=== PATIENT | male | born 1940 | race Caucasian/White ===

== ENCOUNTER 2022-01-01 12:45 | Inpatient (IN) | payer MEDICARE, OTHER, SELFPAY ==
[2022-01-01 13:38] VITALS: BP 145/62; PULSE 53; RESP 16; TEMP 36.7; O2SAT 94; BMI 31.7
[2022-01-01] MEDS: Acetaminophen 500 MG Tablet 1000 MG PO ×2 (15:16→21:47)
[2022-01-01] MEDS: Aspirin 325 MG Tablet PO (17:17)
[2022-01-01 18:50] VITALS: O2SAT 95
[2022-01-01 19:28] VITALS: BP 139/49; PULSE 56; RESP 17; TEMP 37; O2SAT 94
[2022-01-01 21:44] VITALS: BP 123/63; PULSE 48
[2022-01-01] MEDS: Atorvastatin Calcium 20 MG Tablet PO (21:48)
[2022-01-01] MEDS: Furosemide 20 MG Tablet PO (21:48)
[2022-01-01 22:00] VITALS: PULSE 48
[2022-01-01 22:03] VITALS: BP 123/63; PULSE 48
[2022-01-01] MEDS: hydrALAZINE 10 MG Tablet PO (22:03)
[2022-01-01] MEDS: Gabapentin 600 MG Tablet PO (22:03)
[2022-01-01] MEDS: Menthol/Lanolin/Calamine/Znox 113 GM Tube 1 APPLIC TOPICAL (22:03)
[2022-01-02] VITALS (9 sets, daily range): BP systolic 131–152; BP diastolic 51–63; PULSE 51–62; RESP 16–18; TEMP 36.4–36.7; O2SAT 95–96
[2022-01-02 05:47] LABS: Hematocrit 36.3 % (40-54); Hemoglobin 12.6 g/dL (13.0-16.5); Mean Corp Hgb Conc 34.7 g/dL (32-36); Mean Corpuscular Hgb 34.8 pg (27.0-32.0); Mean Corpuscular Volume 100.3 fL (80-94); Mean Platelet Vol. 9.5 fl (6.2-12.0); Platelet Count 159 K/mm3 (150-450); RBC Distribution Width CV 13.6 % (11.6-14.6); RBC Distribution Width SD 50.4 fl (35.1-43.9); Red Blood Count 3.62 M/mm3 (4.6-6.2); White Blood Count 6.7 K/mm3 (4.4-11.0)
[2022-01-02 06:13] LABS: ALB/GLOB Ratio 0.9 RATIO (0.9-2.4); AST(SGOT) 33 U/L (15-37); Alanine Aminotransfer ALT/SGPT 27 U/L (16-61); Alkaline Phosphatase 32 U/L (45-117); Anion Gap 4 (5-15); BUN 32 mg/dL (7-18); BUN/Creat Ratio 24.8 RATIO (10-20); Calcium,Total 9.4 mg/dL (8.5-10.1); Chloride 107 mmol/L (98-107); Creatinine, Serum 1.29 mg/dL (0.70-1.30); EST Glomerular Filtration Rate 57 mL/min (>60); Est Glom Filt Rate - Afr Amer 68 mL/min (>60); Estimated Creatinine Clearance 42.71 ml/min; Globulin 3.2 g/dL (2.2-4.2); Glucose 143 mg/dL (74-106); Magnesium 2.3 mg/dL (1.6-2.6); Phosphorus 2.8 mg/dL (2.5-4.9); Potassium 3.8 mmol/L (3.5-5.1); Protein, Total 6.2 g/dL (6.4-8.2); Sodium Level 143 mmol/L (136-145)
[2022-01-02] MEDS: Acetaminophen 500 MG Tablet 1000 MG PO ×3 (06:29→21:14)
[2022-01-02] MEDS: Gabapentin 600 MG Tablet PO ×2 (06:30→13:25)
[2022-01-02] MEDS: hydrALAZINE 10 MG Tablet PO ×3 (06:30→19:39)
[2022-01-02] MEDS: Potassium Chloride Oral Tablet 10 MEQ PO (07:37)
[2022-01-02] MEDS: Allopurinol 300 MG Tablet PO (07:38)
[2022-01-02] MEDS: Aspirin 325 MG Tablet PO (07:38)
[2022-01-02] MEDS: Pantoprazole Sodium 40 MG Tablet PO (07:38)
[2022-01-02] MEDS: Senna/Docusate Sodium 1 Tablet 2 TABLET PO (07:38)
[2022-01-02] MEDS: Fenofibrate 145 MG Tablet PO (07:38)
[2022-01-02] MEDS: Metoprolol(XL)Succ 100 MG Tablet PO (07:40)
[2022-01-02] MEDS: Colchicine 0.6 MG TABLET PO (07:41)
--- NOTE | 2022-01-02 09:57 | HP.PCM_ITS ---
[facility] - General General Date of Admission: 01/01/22 Date of Service: 01/02/22 Chief Complaint: Debility due to Left total hip replacement. HPI Narrative ELDA BROOKS, is a 81 YO M with a PMH of HTN, HLD, CAD, CI with 1 stent in the past, hx of AV replacement, Prostate cancer, urostomy with an ileal conduits, OA, neuropathy in his feet, gout, obstructive sleep apnea (compliant with CPAP) and CHF who had a L hip THR on 12/28/[address] at [facility]. His tells me that he was very awake in the immediate post-op period and back to himself but, after the pain medication started he had problems with getting angry and confused. He was seen by PT/OT post op and was too unsteady and requiring a lot of voice cuing to manage the walker to be discharged home. Because of his history of aortic valve replacement, congestive heart failure, severe neuropathy in his feet acute rehab was recommended. He was transferred to the acute inpt rehab unit at [facility] on 12/31/21 for 3 hours of therapy daily to restore function at or near his level prior to the surgery. I spoke with his Voileta on the phone and she told me that Madi had been walking with a platform walker at home. He is very afraid of falling due to g ait instability and the numbness in his feet. He has had epidurals in his back over the past year and the first helped for about one month and the follow up epidurals did not help with pain. He has been on Celebrex in the past and this has helped with pain management but, Celebrex was discontinued for the surgery and now orthopedics has him on 325 mg of ASA BID for DVT prophylaxis. He denies hx of PUD/GI bleeds and has no epigastric pain or nausea at the current time. Violeta tells me that Madi is chronically in terrible pain and that he has been depressed but, won't take and antidepressant because he is tired of taking pills. Madi got tearful when I was talking to him about his PCP whom he likes very much. When I listed the sx of depression he had a tear in his eye and said you just described me. He is hesitant to start an antidepressant at the present time but, will think about it and is willing to discuss it with Violeta and myself. He had a hard night last night and called Violeta to come get him and bring him home. He tells me that he slept well last night. PCP is Dr. Sonido Suarez. Ortho is Dr. Sunny Carbone - 05/05/22 at 0800 Post op F/U with Brianda GermainCECILIO - 01/27/22 at 0830. ECHO done 06/28/21: EF is 55%, Normal stress on 10/24/21 [facility] Medical History (Updated 01/02/22 @ 14:[address] April Maloney, DO) Congestive heart failure (CHF) Coronary artery disease Gout Grade I diastolic dysfunction Hyperlipidemia Hypertension LVH (left ventricular hypertrophy) Obstructive sleep apnea Osteoarthritis Prostate cancer Home Medications acetaminophen 500 mg tablet (Acetaminophen Extra Strength) 1,000 mg PO Q8H pain 01/01/22 [History Last Taken Unknown] allopurinol 300 mg tablet 300 mg PO DAILY gout 01/01/22 [History Last Taken Unknown] aspirin 325 mg tablet 325 mg PO BID dvt 01/01/22 [History Last Taken Unknown] colchicine 0.6 mg tablet 0.6 mg PO DAILY gout 01/01/22 [History Last Taken Unknown] fenofibrate 160 mg tablet 160 mg PO DAILY cholesterol 01/01/22 [History Last Taken Unknown] furosemide 20 mg tablet (Lasix) 20 mg PO QHS diuretic 01/01/22 [History Last Taken Unknown] gabapentin 600 mg tablet 600 mg PO TID pain 01/01/22 [History Last Taken Unknown] hydralazine 10 mg tablet 10 mg PO TID bp 01/01/22 [History Last Taken Unknown] metoprolol succinate 100 mg tablet,extended release 24 hr 100 mg PO DAILY bp 01/01/22 [History Last Taken Unknown] nitroglycerin 0.4 mg sublingual tablet 0.4 mg sublingual Q5M PRN Chest Pain 01/01/22 [History Last Taken Unknown] pantoprazole 40 mg tablet,delayed release (Protonix) 40 mg PO DAILY acid reflux 01/01/22 [History Last Taken Unknown] potassium chloride 10 mEq tablet,extended release 10 meq PO DAILY supp 01/01/22 [History Last Taken Unknown] simvastatin 40 mg tablet (Zocor) 40 mg PO QHS cholesterol 01/01/22 [History Last Taken Unknown] Allergy/AdvReac Type Severity Reaction Status Date / Time acetaminophen [From Vicodin] AdvReac PT UNSURE Verified 01/01/22 13:45 OF REACTION fentanyl AdvReac PT UNSURE Verified 01/01/22 13:45 OF REACTION hydrocodone [From Vicodin] AdvReac PT UNSURE Verified 01/01/22 13:45 OF REACTION morphine AdvReac PT UNSURE Verified 01/01/22 13:45 OF REACTION Family History Mother Hypertension CAD (coronary artery disease) Father CAD (coronary artery disease) Hypertension Family History unable to obtain Surgical History (Updated 01/02/22 @ 13:[address] April Maloney DO) Aortic valve replaced H/O total cystectomy History of cataract extraction History of cholecystectomy History of coronary artery stent placement History of left hip replacement History of right hip replacement History of total knee arthroplasty History of urostomy Social History Smoking Status: Former smoker how long ago did patient quit smoking: ?He quit smoking in 1979 ROS Review of Systems ROS Unobtainable: Denies due to encephalopathy, due to endotracheal tube, due to mental condition or due to mental status Constitutional Constitutional: Reports daytime sleepiness, fatigue and weakness; Denies anorexia, change in weight, chills, fever(s) or night sweats Eyes Eyes: Denies blurry vision, change in vision, eye pain, loss of vision or ptosis ENT HEENT: Reports abnormal hearing and disequillibrium; Denies dizziness, dysphagia, headache(s), hearing loss, nasal congestion or sore throat Cardiovascular Cardiovascular: Reports dyspnea on exertion, edema and other Details: Gets very dyspneic with stair climbing ; Denies chest pain, lightheadedness, orthopnea, palpitations, paroxysmal nocturnal dyspnea or syncope Respiratory/Chest Respiratory/Chest: Reports cough and shortness of breath with exertion; Denies dyspnea, shortness of breath at rest or wheezing Gastrointestinal Gastrointestinal: Denies abdominal pain, constipation, diarrhea, dyspepsia, hematemesis, hematochezia, nausea or vomiting Genitourinary Genitourinary: Reports other Details: Has a urostomy with an ileal conduit and wears a landis bag. ; Denies dysuria, hematuria, nocturia, urinary frequency, urinary hesitancy, urinary incontinence or urinary urgency Musculoskeletal Musculoskeletal: Reports difficulty walking, joint pain, joint stiffness, muscle weakness and stiffness; Denies back pain, joint swelling, neck pain or tremors Integumentary Integumentary: Reports other Details: He has a wound vac on - will examine when the vac is changed. Neurologic Neurologic: Reports confusion, disequilibrium, paresthesias, weakness and other Details: denies any hx of CVA. He has neuropathy in both feet and has been on Neurontin for 6-7 years. ; Denies dizziness, focal weakness, headache(s), seizures or tremor(s) Psychiatric Psychiatric: Reports abnormal sleep pattern, behavioral changes, depression, mood swings and other Details: From the hx it sounds as though he sundowns at night while in the hospital.....may be medication induced. ; Denies anxiety, auditory hallucinations, homicidal ideation, suicidal ideation or visual hallucinations Endocrine Endocrinology: Denies change in body appearance, polydipsia or polyuria Hematologic/Lymphatic Hematologic/Lymphatic: Denies easy bleeding, easy bruising or lymphadenopathy Allergic/Immunologic Allergic/Immunologic: Denies rhinitis, eczemia or asthma Vital Signs Vital Signs Vital Signs: 01/01/22 13:38 01/01/22 18:14 01/01/22 19:28 Temperature 98.1 F 98.6 F Temperature Source Oral Temporal Pulse Rate 53 L 56 L Respiratory Rate 16 17 Respiratory Effort Normal Non-Labored Respiratory Depth Normal Respiratory Pattern Normal Blood Pressure 145/62 H 139/49 H Blood Pressure Mean 89 79 Blood Pressure Source Monitor Monitor Blood Pressure Position Semi-Fowlers Semi-Fowlers Blood Pressure Location Right Arm Left Arm Pulse Ox 94 94 Oxygen Delivery Method Room Air Room Air Room Air 01/01/22 21:44 01/01/22 22:03 01/01/22 22:00 Temperature Temperature Source Pulse Rate 48 L 48 L 48 L Respiratory Rate Respiratory Effort Respiratory Depth Respiratory Pattern Blood Pressure 123/63 H 123/63 H Blood Pressure Mean 83 Blood Pressure Source Monitor Blood Pressure Position Semi-Fowlers Blood Pressure Location Left Arm Pulse Ox Oxygen Delivery Method 01/01/22 18:50 01/02/22 06:21 01/02/22 06:30 Temperature Temperature Source Pulse Rate 51 L 51 L Respiratory Rate Respiratory Effort Respiratory Depth Respiratory Pattern Blood Pressure 152/63 H 152/63 H Blood Pressure Mean 92 Blood Pressure Source Monitor Blood Pressure Position Semi-Fowlers Blood Pressure Location Left Arm Pulse Ox 95 Oxygen Delivery Method Room Air 01/02/22 07:10 01/02/22 07:40 01/02/22 08:09 Temperature 97.6 F L Temperature Source Oral Pulse Rate 60 60 Respiratory Rate 16 Respiratory Effort Respiratory Depth Respiratory Pattern Blood Pressure 131/51 H Blood Pressure Mean 77 Blood Pressure Source Monitor Blood Pressure Position Sitting Blood Pressure Location Left Arm Pulse Ox 95 96 Oxygen Delivery Method Room Air Room Air Weight Weight: 216 lb 11.43 oz Body Mass Index (BMI) 31.7 Physical Exam Const alert, oriented x3 and no apparent distress Constitutional Narrative: Very flat affect. Lying in bed and sleeping when I entered the room. General Appearance: cooperative and ill appearing HEENT normocephalic and head/scalp atraumatic HEENT Narrative: Dry MM. Has BL Hearing aids. Very little facial expression except for tears a few times. Eyes PERRL, EOMs intact bilaterally, conjunctivae normal, no scleral icterus and normal visual aguiar by confrontation Eyes Narrative: No DC from the eyes and no mattering of the eye lashes. General Eye: normal appearance of both eyes and other Other Details: Not wearing glasses Neck no lymphadenopathy, supple and no carotid bruits General: trachea midline Chest inspection of chest normal Resp normal respiratory effort, normal air movement and no use of accessory muscles Resp Narrative: Coarse crackles in the bases that resolve with several deep breaths. No orthopnea or labored breathing when I observed him lying flat and sleeping. Not snoring. Effort and Inspection: able to speak in complete sentences Cardio regular rate, regular rhythm, no rub and no gallops Cardio Narrative: He has a 1/6 JACK at the second R ICS with no radiation. Jugular Venous Distention: Negative for JVD GI GI Narrative: Soft, ND, decreased BS's, mild tympany, no guarding with palpation. No abd bruits. No masses. Urostomy present - connected to a Landis bag. The urine in the Landis bag is dark and somewhat cloudy. No obvious hematuria. Narrative: did not have an orchiectomy with the removal of the prostate. He had radiation and no chemo. 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 He is not wearing BRENT hose. He tells me his feet swell at home also. The DP pulses are 1-2/3 and the posterior tibial pulses are 3/3 BL. The R foot is somewhat cool to the touch when compared to the left. Skin Skin Narrative: No rashes. He has a wound vac on but, it is not draining. Will remove the dressing and examine when he is back in bed. Wound Narrative: He has male pattern baldness. Neuro oriented x3 Neuro Narrative: He has an abnormal gait with very small steps. The R foot is rotated externally when ambulating. He is also weaker on the R side than the left. He keeps pushing the R foot forward when he is attempting to stand from the chair. He also is not using the RUE to push off when trying to stand from the chair. No dysarthria and no aphasia detected. No facial droop. He has severe numbness in both feet. Denies pain in the R leg or burning in the R foot. I did not observe any tremors. Speech: speech normal Psych thought process normal, cooperative, denies hallucinations, denies homicidal ideation and denies suicidal ideation Psych Narrative: Tearful at 2 times during my interview. Once when we were speaking about his PCP and and the other when I was reviewing the sx of depression with him Appearance: grossly normal and appropriate Attitude: calm Activity / Motor Behavior: other Good eye contact at times and at others he is looking away from me.......more so when he had tears in his eyes. Mood & Affect: depressed, tearful, flat affect, blunted affect and other Was argumentative with the nurses last night and called his to come and take him home. Thought Process: other Having trouble remembering instructions on how to appropriate use the walker and to stay within the walker when he is ambulating........he is pushing the walker way out in front of him and then is flexed at the waist trying to reach it. Memory / Cognition: other Mostly paying attention but, occasionally looking off into space with a far off look in his eyes. Insight: poor Judgement: limited Results Lab / Micro Data Result Diagrams: 01/02/22 05:24 01/02/22 05:24 Labs: Laboratory Results - last 24 hr 01/02/22 05:24: WBC 6.7, RBC 3.62 L, Hgb 12.6 L, Hct 36.3 L, MCV 100.3 H, MCH 34.8 H, MCHC 34.7, RDW Std Deviation 50.4 H, RDW Coeff of Eri 13.6, Plt Count 159, MPV 9.5 01/02/22 05:24: Sodium 143, Potassium 3.8, Chloride 107, Carbon Dioxide 32.0, A nion Gap 4 L, BUN 32 H, Creatinine 1.29, Estim Creat Clear Calc 42.71, Est GFR (MDRD) Af Amer 68, Est GFR (MDRD) Non-Af 57 L, BUN/Creatinine Ratio 24.8 H, Glucose 143 H, Calcium 9.4, Phosphorus 2.8, Magnesium 2.3, Total Bilirubin 0.90, AST 33, ALT 27, Alkaline Phosphatase 32 L, Total Protein 6.2 L, Albumin 3.0 L, Globulin 3.2, Albumin/Globulin Ratio 0.9 Assessment & Plan Assessment/Plan (1) Physical debility: PLAN: Basically sedentary for the past year due to severe pain L hip and groin. Very deconditioned. Ambulates with a platform walker at home when he does ambulate. Has severe peripheral neuropathy and dysequilibrium. (2) History of left hip replacement: PLAN: At [facility] on 12/28/[address] Carbone. L JAX. Has had a R THR and BL TKR in the past. (3) owning: PLAN: I suspect this may be due to combined effects of medication and frustration about not being able to go home after the surgery. (4) Depression: PLAN: Pt admits to having sx of depression and his agrees. She has tried to get him to try another antidepressant and he has resisted because he is tired of taking pills and when he tried an antidepressant in the past it made him very sleepy. (5) Memory deficit: PLAN: Due to Gabapentin? Is the Gabapentin making him more depressed? He is bradycardic and anemic - could he have thyroid disease? He is macrocytic........could he have a B12 deficiency.......could this be contributing to the peripheral neuropathy. (6) Macrocytic anemia: PLAN: Etiology? Reticulocytosis due to acute blood loss with surgery? (7) Osteopenia determined by x-ray: PLAN: To his knowledge he has not had a bone density test. Would recommend in the future. He did not have an orchiectomy with the prostate CA treatment. He had radiation and surgery only. To his knowledge he did not take medication to decrease Testosterone. (8) Venous insufficiency of both lower extremities: PLAN: Order BRENT hose. (9) Presbycusis of both ears: (10) Aortic valve replaced: (11) Grade I diastolic dysfunction: (12) LVH (left ventricular hypertrophy): (13) Congestive heart failure (CHF): (14) Obstructive sleep apnea: PLAN: Compliant with CPAP. (15) Hypertension: (16) Hyperlipidemia: (17) Gout: PLAN: Check a uric acid level to make sure the UA is less than 6. Could the allopurinol be contributing to the anemia? (18) Coronary artery disease: (19) Paroxysmal atrial fibrillation: PLAN: Currently in NSR. (20) Myelopathy: PLAN: Suspected. R leg is weaker than the left which he just had surgery on. He also seems to be weak in the RUE. Etiology? Due to spinal cord compression? (21) Peripheral neuropathy: (22) Glucose intolerance (impaired glucose tolerance): PLAN: Check a hemoglobin A1c. PLAN: Plan PLAN PT for gait stability OT for ADL's ST for evaluation for swallowing and memory Analgesics as needed - avoid narcotics Bowel protocol Fall precautions Assess for Anxiety/Depression GI prophylaxis with pantoprazole DVT prophylaxis with Eliquis 2.5 mg BID Follow up with Dr. Carbone and Dr. Suarez following DC from Rehab AM lab including CMP, CBC, Mag and Phos all personally reviewed. Will also order TSH, B12, Folate, Uric acid, UA, Testosterone. Decrease the Gabapentin to 400 mg TID. Seroquel 25 mg at 1900 daily for . Encouraged increased fluid intake. BRENT hose to control edema in the LE's due to venous insufficiency. Obtain copies of any imaging done of the low back in the past. I reviewed the ECHO report Any EMG's in the past? Unit Exclusion This patient is an acute care inpatient being housed in the excluded unit because of capacity issues related to the disaster or emergency.: Yes
[2022-01-02 11:07] LABS: Thyroid Stim Hormone (TSH) 3.75 uIU/mL (0.358-3.74)
[2022-01-02 13:29] LABS: Vitamin D,25 Hydroxy 32.9 ng/mL
[2022-01-02 13:31] LABS: Vitamin B12 187 pg/mL (211-911)
[2022-01-02 13:55] LABS: Uric Acid 5.2 mg/dL (3.5-7.2)
--- NOTE | 2022-01-02 14:22 | REHABEVAL_ITS ---
Admission Information Primary Diagnosis:: Physical debility due to L THR and deconditioning and B12 deficiency with severe peripheral neuropathy and gait instability. Status Changes from Prescreening?: No changes Identified Actual Problem List:: Skin Intergrity, Pain, ALteration in Cmfrt, Cognitve Imp r/Memory Loss, Depression, Alteration in Sleep, Mobility Impaired, Self Care Deficit, Alteration/ Air Exchange (atelectasis), Fluid Change-Dehydration and Alteration-Leisure Activ. Potential Problem List:: DVT, Bleeding, Infection, UTI, Aspiration, Falls, Skin Integrity and Depression Risk of Complications DVT: LMWH and BRENT Hose Bleeding: Monitor Lab Values, Nursing to Teach Precautions for anti-coagulation therapy., Wound, if applicable, to be assessed every shift. and Stroke patients assessed for lethargy or change in status. Infection: Clinical Staff to Monitor for S/S of infection: and S/S of infection include fever, redness, warmth, etc. Urinary Tract Infection: Monitor for frequency, burning, discomfort, or incontinence. and Nursing will obtain urine sample for urinalysis and C&S when ordered. Aspiration: Clinical staff will monitor for coughing, drooling, congestion., Speech will evaluate swallowing and dsyphasia. and Nursing will monitor patient swallowing during meals. Falls: Patient will be evaluated for Fall Precautions and Patient will be placed on Fall Precautions as indicated per protocol. Skin Breakdown: Nursing will assess skin daily using assessment tool. and Nursing will place on Skin Breakdown Precautions as indicated. Pain: Clinical staff will assess patient's pain level per protocol., Medications will be given, if needed, and the pain level reassessed. and Other methods: Massage, distraction, decrease stimulus, etc. used PRN. Plan of Care Patient requires physician specializing in physical medicine and rehab oversight to provide close medical supervision of rehab issues including: Pain Management, Sleep Problems, Bowel and Bladder, Medical and co-morbidity Management, DVT prophylaxis, Rehabilitation Leadership and Coordination of treatment team Patient needs Physical Therapy: For a minimum of 1 hour and At least 5 out of 7 days Patient needs Physical Therapy to improve:: Mobility, Strengthening, Transfers, Stretching, ROM, Endurance, Stairs, Gait and Balance Patient needs Occupational Therapy: For a minimum of 1 hour and At least 5 out of 7 days Patient needs Occupational Therapy to improve ADL's incl.: Eating, Grooming, Bathing, Dressing, Toileting, Toilet transfers, Community Reintegration, Higher functioning activities, Household tasks, Adaptive Equipment, Splinting and Other activities as determined Patient requires speech therapy: For a minimum of 1 hour and At least 5 out of 7 days Patient requires speech therapy for: Swallowing, Cognition, Language Skills and Compensatory Strategies Patient requires 24/ Rehabilitation Nursing for: Pain Issues, Identifying and preventing risk factors, Monitoring and reporting current medical conditions, Assisting with ambulation, transfer, and all ADL's, Teaching patients about disease process and medications, Family teaching, Providing safe environment, Bowel and Bladder Issues, Skin integrity and Medication Management Patient needs Brake Lining Finisher/ Case Management for: Discharge Planning, Arranging Home Equipment or Services and Family Interventions Patient needs Dietary and Nutrition Services for: Adequate Nutrition, Nutritional Supplements and Nutritional Education Goals Patient will remain: free from falls and or injury at time of discharge. Patient will perform bed mobility at: MOD I level of assist. Patient will complete transfers from bed to chair at: MOD I level of assist. Patient will ambulate: 100 feet (At SBA) and with LRD Patient will complete upper body dressing at: MOD I level of assist. Patient will complete lower body dressing at: Standby Assist. Patient will complete toileting at: MOD I level of assist. Patient will perform bathing at: Standby Assist. Patient will complete grooming at: MOD I level of assist. Patient will complete home management skills at: MOD I level of assist. Patient will achieve: - (1 curb step) Patient will have pain level of: of 3 or less Patient's skin will: remain intact Patient will receive: adequate nutrition. Discharge Planning Estimated Length of stay (days): 14 Anticipated D/C Destination: Home with Home Health Was Preadmission Assessment Accurate?: Yes
--- NOTE | 2022-01-02 14:36 | WOUNDNOTE ---
wound photo: left anterior hip
--- NOTE | 2022-01-02 14:42 | WOUNDNOTE ---
in to assess the urostomy appliance. the flange was starting to loosen. removed the appliance. stoma is beefy red and moist. peristomal skin is intact. cleansed skin with warm water. pat dry. applied a new 2 piece [place] appliance with a paste ring. pt tolerated well. will monitor. nursing can assist patient with appliance changes as needed.
[2022-01-02 15:14] LABS: Mucous, Urine 0 SEEN /hpf (<or=2+)
[2022-01-02 15:18] LABS: Color, Urine Yellow (Yellow); Glucose, Dipstick Normal (Normal); Ketone-Dipstick Negative (Negative); Leukocyte Esterase-Dipstick 25 /ul (Negative); Nitrite-Dipstick Negative (Negative); Occult Blood-Urine 10 /ul (Negative); Protein-Dipstick 30 mg/dl (Negative); Specific Gravity, Urine 1.015 (1.002-1.030); Urine Bilirubin Dipstick Negative (Negative); Urine Clarity Clear (Clear); Urine Urobilinogen 4 mg/dl (Normal)
[2022-01-02 15:48] LABS: Bacteria 3+ /hpf (None Seen); Squamous Epithelial Cells - UA 0-5 SEEN /hpf (0-5); White Blood Cells 10-25 SEEN /hpf (0-5)
[2022-01-02 15:49] LABS: Red Blood Cells-Urine 5-10 SEEN /hpf (0-5)
[2022-01-02] MEDS: Cyanocobalamin (B12) 1,000 MCG/ML Vial 1000 MCG IM (17:09)
--- NOTE | 2022-01-02 18:46 | NURSING ---
Called Dr. Suarez office 2x's and faxed over medical record release form for med list, problem list, and any imaging studies but have not received. forgot to bring in his home medication bottles but she will tomorrow.
[2022-01-02] MEDS: QUEtiapine 25 MG Tablet PO (18:52)
[2022-01-02] MEDS: Gabapentin 400 MG Capsule PO (19:30)
[2022-01-02] MEDS: APIXABAN 2.5 MG TABLET PO (19:38)
[2022-01-02] MEDS: Furosemide 20 MG Tablet PO (19:39)
[2022-01-02] MEDS: Menthol/Lanolin/Calamine/Znox 113 GM Tube 1 APPLIC TOPICAL (19:39)
[2022-01-02] MEDS: Atorvastatin Calcium 20 MG Tablet PO (19:40)
[2022-01-03] VITALS (8 sets, daily range): BP systolic 138–146; BP diastolic 54–72; PULSE 56–584; RESP 15–18; TEMP 36.6–36.7; O2SAT 95–96
[2022-01-03] MEDS: Gabapentin 400 MG Capsule PO (06:56)
[2022-01-03] MEDS: hydrALAZINE 10 MG Tablet PO ×3 (06:56→19:43)
[2022-01-03] MEDS: Acetaminophen 500 MG Tablet 1000 MG PO ×3 (06:56→21:02)
[2022-01-03] MEDS: Menthol/Lanolin/Calamine/Znox 113 GM Tube 1 APPLIC TOPICAL ×2 (07:00→19:52)
[2022-01-03] MEDS: Fenofibrate 145 MG Tablet PO (08:15)
[2022-01-03] MEDS: Allopurinol 300 MG Tablet PO (08:15)
[2022-01-03] MEDS: Potassium Chloride Oral Tablet 10 MEQ PO (08:15)
[2022-01-03] MEDS: APIXABAN 2.5 MG TABLET PO ×2 (08:15→19:44)
[2022-01-03] MEDS: Metoprolol(XL)Succ 100 MG Tablet PO (08:15)
[2022-01-03] MEDS: Pantoprazole Sodium 40 MG Tablet PO (08:15)
[2022-01-03] MEDS: Colchicine 0.6 MG TABLET PO (08:15)
[2022-01-03] MEDS: Cyanocobalamin (B12) 1,000 MCG/ML Vial 1000 MCG IM (08:16)
--- NOTE | 2022-01-03 10:54 | NURSING ---
BRAND ANALYST alerted this nurse that pt was extremely tired and would not wake up for therapy. VS WNL. No S/S distress noted. pt's present and stated he sleeps like this at home, sometimes he will sleep until 6pm Dr Maloney made aware.
--- NOTE | 2022-01-03 11:39 | PN_ITS ---
Subjective Subjective Afebrile VSS Maintaining appropriate oxygen saturation on RA Oral intake is good. Fluid balance yesterday was -780. Discussed with nursing - no problems that need addressed Reviewed the PT/OT/ST notes - He did not want to work with therapy today and he went back to sleep. His was here to help with personal care but, he could not keep his eyes open and went into a deep sleep. Violeta stated this is his normal and sometimes he does not get up until 12:30. He got 25 mg of Seroquel last night at 7 PM for and this may be contributing to the drowsiness. Tramadol was discontinued yesterday. Medication list reviewed. B12 was low at 187. Vitamin D level is 32.9 which is sufficient, but will likely decrease as fall/winter progresses. Folate is normal at 7.7 and the testosterone is 337 which is normal. UA showed 5-10 RBCs per high-power field and 10-25 WBCs per high-power field with 3+ bacteria. Urine culture is pending. Intrinsic factor antibody is pending. I went into his room at about 12:30 and he had his eyes open but he was not moving his arms or legs......he was very stiff and not moving. He spoke in a monosyllabic whisper and shrugged his shoulders a lot.......he then went right back to sleep. His told me that he follows with Dr. Samy Lr who is a sleep specialist they see in [place]. She did not recall when Madi's last sleep study was and she also said they have never been given a diagnosis other than YANELY. She has a very hard time getting him awake and sometimes has to try 3 or 4 times before he awakens. He was awake for breakfast today and then went back to sleep. She tells me that he is alert when the grandkids are over but, she keeps saying he has always liked to sleep and has been a good sleeper since the she first knew him when they were in their teens. Madi denies visual hallucinations just prior to going to sleep and just prior to waking up. He denies RLS. When I asked her how the CPAP (prescribed 6-7 years ago) helped Madi she told me that it helped him sleep better........but she told me he has always been a good sleeper. Panacea denies pain today. Denies SOB......ROS is very difficult because he just shrugs his shoulders a lot and then nods off again. Objective Data Objective Data Vital Signs: Vital Signs Temp Pulse Resp BP Pulse Ox O2 Del Method 98 F 57 L 18 138/55 H 95 Room Air 01/03/22 10:57 01/03/22 10:57 01/03/22 10:57 01/03/22 10:57 01/03/22 10:57 01/03/22 10:57 Oxygen Delivery Method Room Air Weight: 216 lb 11.43 oz Body Mass Index (BMI) 31.7 Intake & Output: Intake and Output for Last 24 Hours 01/01/22 01/02/22 01/03/22 23:59 23:59 23:59 Intake Total 860 / 1360 1850 / 1850 360 / 360 Output Total 525 / 525 1650 / 2250 1400 / 1400 Balance 335 / 835 200 / -400 -1040 / -1040 Lab / Micro Data Result Diagrams: 01/02/22 05:24 01/02/22 05:24 Labs: Laboratory Results - last 24 hr 01/02/22 05:24: Uric Acid 5.2 01/02/22 12:23: Vitamin D 25-Hydroxy 32.9 01/02/22 12:23: Vitamin B12 187 L 01/02/22 12:23: Folate 7.70 01/02/22 12:23: Total Testosterone 337.26 01/02/22 15:00: Urine Color Yellow, Urine Clarity Clear, Urine pH 7.0, Ur Specific [place] 1.015, Urine Protein 30 H, Urine Glucose (UA) Normal, Urine Ketones Negative, Urine Occult Blood 10 H, Urine Nitrite Negative, Urine Bilirubin Negative, Urine Urobilinogen 4 H, Ur Leukocyte Esterase 25 H, Urine RBC 5-10 SEEN, Urine WBC 10-25 SEEN, Ur Squamous Epith Cells 0-5 SEEN, Urine Bacteria 3+, Urine Mucus 0 SEEN Physical Exam Const Constitutional Narrative: Very drowsy, nods off to sleep very easily. The OT tried to move him in bed and she tells me that he was very stiff and would not wake up. His seems to t hink this is normal behavior? Eyes PERRL and EOMs intact bilaterally Neck No nuchal rigidity Resp normal respiratory effort Resp Narrative: coarse crackles in the bases, no wheezing, not tachypneic Cardio regular rate, regular rhythm, no murmurs and no gallops GI normal to inspection, nondistended, normoactive bowel sounds, soft to palpation and non-tender Extremity no calf tenderness General Extremity: edema bilateral (no change since yesterday. ) Skin General Skin Exam: no breakdown Rashes: no rashes Neuro CN's II-XII intact bilaterally Psych Mood & Affect: flat affect Assessment & Plan Assessment/Plan (1) B12 deficiency: (2) Macrocytic anemia: (3) Peripheral neuropathy: (4) Memory deficit: (5) Depression: (6) Physical debility: (7) History of left hip replacement: (8) Obstructive sleep apnea: (9) Hypersomnia: PLAN: Plan 1. Continue therapy 2. Discontinue Seroquel 3. No tx for UTI at this time......he has an ileal conduit and so Bacteria/WBC's/RBC's in urine is not uncommon. He is AF and has a jareth WBC. 4. Continue daily B12 1,000 mcg daily.......today is day 2/7 and then will transition to 1,000 mcg weekly X4 and then monthly thereafter. If the IF AB is negative may be able to switch to an oral B12 supplement. 5. I suspect he may have another sleep disorder in addition to YANELY. Find out when his last sleep study was. Does he have cataplexy? Does he have hallucinations at sleep onset or when he first awakens? Consider a trial of Modafinil? DC Gabapentin? 6. Hold Gabapentin until he is more alert 7. Request records from Dr. Lr, sleep specialist Charges/Coding Visit Charges Inpatient E&M: 48191 Subs Hosp L2
--- NOTE | 2022-01-03 16:10 | CHAPLAIN ---
Type of Pastoral Visit _x__ Initial Visit ___ Follow-up Visit ___ On-call Visit ___ General Patient Visit ___ Spiritual Assessment ___ Family Conference ___ Bereavement ___ Rapid Response ___ Code Blue ___ Other (describe below) Pastoral Care Referral From _x__ Patient ___ Family ___ Nurse ___ Physician ___ Toddler Lead Teacher ___ Lard Mixer ___ Other (describe below) Sacrament/Intervention _x__ Active listening ___ Anointing ___ Gnosticist ___ Bereavement ___ Communion _x__ Kelsey exploration ___ _x__ Life review _x__ Prayer ___ Reconciliation ___ Sacrament of Sick _x__ Supportive presence ___ Wedding ___ Other (describe below) Pastoral Comments patient is welcoming to roofing applicator; pt may have some cognitive issues since he was convinced that he is waiting for surgery and stated he doesn't know why there is a long gash in his leg and what the ice machine is doing on his leg; pt said I'll find out from my granddaughter when she comes because she may know about that; pt gave work history and talked about the bahai he used to be a part of in [place]; pt said he had good family but then got mixed up on the numbers of children or grandchildren that he had although he could name them; pt said he would be glad to be going home as I am not used to sitting around like this; pt welcomed the visit and the prayer; pt said it would be good to come back anytime
[2022-01-03] MEDS: Furosemide 20 MG Tablet PO (19:44)
[2022-01-03] MEDS: Senna/Docusate Sodium 1 Tablet 2 TABLET PO (19:45)
[2022-01-03] MEDS: Atorvastatin Calcium 20 MG Tablet PO (19:45)
--- NOTE | 2022-01-04 00:20 | NURSING ---
Pt still awake and watching tv when staff rounds and empties BLEVINS. Pt accepted RN offer for extra blanket as POLAR CARE is in place and pt feels cold.
--- NOTE | 2022-01-04 04:50 | NURSING ---
Pt removed CPAP due to humidity build up in mask. Pt made adjustment to humidity level from 7 to 5. Pt then decided to just turn off machine despite RN offering to call RT to check adjustments and try to make CPAP comfortable for the rest of the night. Pt refused. RN informed pt of importance of compliance with CPAP use to no avail. Pt resting quietly at this time.
[2022-01-04 06:30] VITALS: BP 153/63; PULSE 56
[2022-01-04] MEDS: hydrALAZINE 10 MG Tablet PO ×3 (06:30→20:54)
[2022-01-04] MEDS: Menthol/Lanolin/Calamine/Znox 113 GM Tube 1 APPLIC TOPICAL ×2 (06:31→20:58)
[2022-01-04] MEDS: Acetaminophen 500 MG Tablet 1000 MG PO ×3 (06:31→20:54)
[2022-01-04 07:22] VITALS: BP 153/63; PULSE 56; RESP 20; TEMP 36.7; O2SAT 94
[2022-01-04 07:47] VITALS: BP 156/63; PULSE 56
[2022-01-04] MEDS: Cholecalciferol (Vit D3) 125 MCG CAPSULE (5,000 UNITS) PO (07:47)
[2022-01-04] MEDS: Potassium Chloride Oral Tablet 10 MEQ PO (07:47)
[2022-01-04] MEDS: Metoprolol(XL)Succ 100 MG Tablet PO (07:47)
[2022-01-04] MEDS: Colchicine 0.6 MG TABLET PO (07:47)
[2022-01-04] MEDS: Aspirin 81 MG TAB.CHEW PO (07:47)
[2022-01-04] MEDS: APIXABAN 2.5 MG TABLET PO ×2 (07:47→20:54)
[2022-01-04] MEDS: Allopurinol 300 MG Tablet PO (07:47)
[2022-01-04] MEDS: Fenofibrate 145 MG Tablet PO (07:47)
[2022-01-04] MEDS: Senna/Docusate Sodium 1 Tablet 2 TABLET PO (07:47)
[2022-01-04] MEDS: Pantoprazole Sodium 40 MG Tablet PO (07:47)
[2022-01-04] MEDS: Cyanocobalamin (B12) 1,000 MCG/ML Vial 1000 MCG IM (07:58)
[2022-01-04 14:30] VITALS: PULSE 60
[2022-01-04 19:30] VITALS: BP 143/62; PULSE 57; RESP 15; TEMP 37.2; O2SAT 94
[2022-01-04 20:54] VITALS: BP 143/63; PULSE 57
[2022-01-04] MEDS: Atorvastatin Calcium 20 MG Tablet PO (20:54)
[2022-01-04] MEDS: Furosemide 20 MG Tablet PO (20:55)
[2022-01-05] VITALS (9 sets, daily range): BP systolic 135–157; BP diastolic 59–67; PULSE 56–64; RESP 16–18; TEMP 36.7–36.8; O2SAT 96
[2022-01-05] MEDS: Acetaminophen 500 MG Tablet 1000 MG PO ×3 (05:20→21:46)
[2022-01-05] MEDS: hydrALAZINE 10 MG Tablet PO ×3 (05:20→21:47)
[2022-01-05] MEDS: Menthol/Lanolin/Calamine/Znox 113 GM Tube 1 APPLIC TOPICAL ×2 (05:21→21:47)
[2022-01-05] MEDS: Fenofibrate 145 MG Tablet PO (07:52)
[2022-01-05] MEDS: Allopurinol 300 MG Tablet PO (07:52)
[2022-01-05] MEDS: Metoprolol(XL)Succ 100 MG Tablet PO (07:52)
[2022-01-05] MEDS: Pantoprazole Sodium 40 MG Tablet PO (07:52)
[2022-01-05] MEDS: APIXABAN 2.5 MG TABLET PO ×2 (07:52→21:46)
[2022-01-05] MEDS: Cholecalciferol (Vit D3) 125 MCG CAPSULE (5,000 UNITS) PO (07:52)
[2022-01-05] MEDS: Colchicine 0.6 MG TABLET PO (07:52)
[2022-01-05] MEDS: Potassium Chloride Oral Tablet 10 MEQ PO (07:52)
[2022-01-05] MEDS: Cyanocobalamin (B12) 1,000 MCG/ML Vial 1000 MCG IM (07:53)
[2022-01-05] MEDS: Aspirin 81 MG TAB.CHEW PO (07:55)
[2022-01-05] MEDS: Gabapentin 100 MG Capsule PO ×2 (11:16→16:59)
--- NOTE | 2022-01-05 12:07 | PN_ITS ---
Subjective Subjective [place] was seen on team rounds today. Afebrile VSS-systolic blood pressure is mildly elevated at times. Diastolic is within normal limits. Resting heart rate is in the 50s but increases appropriately with exertion. Maintaining appropriate oxygen saturation on RA Oral intake is adequate He has been incontinent of stool. Discussed with nursing - no problems that need addressed Reviewed the PT/OT/ST notes Medication list reviewed. Urine culture has 11,000 - 25,000 colonies of a gram-negative nathan and the second organism is possible Pseudomonas species. He still is afebrile. But tells me that he did not sleep well last night and his feet have been hurting. He denies chest pain, cough, shortness of breath, nausea, vomiting, abdominal pain, dysuria. He is eating outside food brought by his . He is out of sorts today and repeatedly asks when he can go home. He is much more alert than on my previous visit with him. His eyes are wide open and he is participating in the conversation. He does not recall much of what I talked to him about a few days ago, including treatment of depression. His tells me that he has been depressed for some time and none of their friends come to visit any longer because he is so out of sorts. Objective Data Objective Data Vital Signs: Vital Signs Temp Pulse Resp BP Pulse Ox O2 Del Method 98.0 F 56 L 18 157/59 H 96 Room Air 01/05/22 07:44 01/05/22 07:52 01/05/22 07:44 01/05/22 07:44 01/05/22 07:44 01/05/22 07:44 Oxygen Delivery Method Room Air Weight: 216 lb 7.903 oz Body Mass Index (BMI) 31.7 Intake & Output: Intake and Output for Last 24 Hours 01/03/22 01/04/22 01/05/22 23:59 23:59 23:59 Intake Total 1460 / 1580 1200 / 1200 440 / 440 Output Total 2550 / 2950 1999 / 1999 950 / 950 Balance -1090 / -1370 -800 / -800 -510 / -510 Lab / Micro Data Result Diagrams: 01/02/22 05:24 01/02/22 05:24 Micro: Microbiology 01/02/22 15:00 Urine Catheter - Catheter Urine Culture - Preliminary Gram negative nathan GNR Poss Pseudomonas sp Physical Exam Const alert and no apparent distress Constitutional Narrative: Agitated emotionally, no fidgeting or restlessness. Poor memory and decreased hearing.......I think some times he is not listening rather than not hearing. He has his own ideas of what he can and can not do and he wants to go home. His agrees that he is not ready and she would be unable to provide the assistance he needs at this time without injuring him or herself in the process. She has noticed a big difference in his level of alertness over the past 2 days since the Gabapentin has been held. He is more like his old self, only grumpier. Despite being grumpy he is participating with therapy and he even smiles on occasion. General Appearance: well developed HEENT normocephalic HEENT Narrative: Decreased blink. Eyes are wide open today and he is not nodding off when I talk to him. Eyes PERRL and EOMs intact bilaterally Eyes Narrative: No DC from the eyes and no mattering of the eye lashes. General Eye: normal appearance of both eyes and other Other Details: Not wearing glasses Neck No nuchal rigidity, no lymphadenopathy, supple and no carotid bruits General: trachea midline Chest inspection of chest normal Resp normal respiratory effort and clear to auscultation bilaterally Resp Narrative: No conversational dyspnea. Effort and Inspection: Negative for tachypneic Cardio regular rate, regular rhythm and no gallops Cardio Narrative: He has a 1/6 JACK at the second R ICS with no radiation. Jugular Venous Distention: Negative for JVD GI normal to inspection, nondistended, normoactive bowel sounds, soft to palpation and non-tender GI Narrative: Soft, ND, decreased BS's, mild tympany, no guarding with palpation. No abd bru its. No masses. Urostomy present - connected to a Bob bag. The urine in the Bob bag is dark and somewhat cloudy. No obvious hematuria. no CVA tenderness Narrative: did not have an orchiectomy with the removal of the prostate. He had radiation and no chemo. 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 He is not wearing BRENT hose. He tells me his feet swell at home also. The DP pulses are 1-2/3 and the posterior tibial pulses are 3/3 BL. The R foot is somewhat cool to the touch when compared to the left. General Extremity: edema bilateral (no change since yesterday. ) Skin Skin Narrative: No rashes. He has a wound vac on but, it is not draining. Will remove the dressing and examine when he is back in bed. General Skin Exam: no breakdown Rashes: no rashes Wound Narrative: He has male pattern baldness. Neuro oriented x3 and CN's II-XII intact bilaterally Neuro Narrative: thought process is better today and it does not take him as long to answer my questions. He is much more alert and he is projecting his voice better and with better enunciation. Speech: speech normal Psych cooperative, denies hallucinations, denies homicidal ideation and denies suicidal ideation Psych Narrative: He cpntinues to think about an antidepressant but, has not agreed t start one yet. Appearance: grossly normal and appropriate Attitude: calm, agitated, No aggressive and No hostile Activity / Motor Behavior: other Good eye contact at times and at others he is looking away from me.......more so when he had tears in his eyes. Mood & Affect: depressed, tearful, flat affect, blunted affect and other Was argumentative with the nurses last night and called his to come and take him home. Thought Process: other Having trouble remembering instructions on how to appropriate use the walker and to stay within the walker when he is ambulating. .......he is pushing the walker way out in front of him and then is flexed at the waist trying to reach it. Memory / Cognition: other Mostly paying attention but, occasionally looking off into space with a far off look in his eyes. Insight: poor Judgement: limited Assessment & Plan Assessment/Plan (1) Physical debility: (2) History of left hip replacement: PLAN: Elective hip repair for degenerative joint disease. (3) B12 deficiency: PLAN: Continue B12 1000 mcg daily x7 days then 1000 mcg weekly x4 and then 1000 mcg monthly. If the intrinsic factor antibody is negative may be able to convert him to 1000 mcg of B12 daily p.o. (4) Macrocytic anemia: PLAN: Likely secondary to B12 deficiency. (5) Peripheral neuropathy: PLAN: due to back or to B12 deficiency? (6) Memory deficit: PLAN: I suspect this is multifactorial and is due to high-dose gabapentin, B12 deficiency and depression. (7) Depression: PLAN: I discussed starting an anti-depressant with his and she would like to see him started on an antidepressant. She is going to talk to him. Will start Effexor which will help with chronic pain as well as depression and will help to keep him more alert during the day. (8) Obstructive sleep apnea: PLAN: Compliant with CPAP. (9) Hypersomnia: PLAN: He is much more awake and appropriate with holding the Gabapentin. He did not sleep well last night due to pain in his feet. Will restart Gabapentin at a much lower dose, 100 mg BID and 300 mg at 1900 daily and continue to observe him for recurrent hypersomnia. PLAN: Plan Charges/Coding Visit Charges Inpatient E&M: 54959 Subs Hosp L2
--- NOTE | 2022-01-05 12:53 | CASEMGMT ---
Social Work IDT met with patient, and son for Team meeting. Discussed patient's progress in PT/OT/ST/SN. Educated to Medicare approval 15 days with [facility] 01/15. Pts goal is to return home with . can only minimally assist. Pt needs to be stronger and have better balance. Pt is adamant about returning home as soon as possible. spoke about addressing irritability, cognition, depression. SW to continue to follow for DC planning and support as needed. Will Reteam next week. Nisha Harris MSW [employer] DRIER OPERATOR
[2022-01-05] MEDS: Gabapentin 300 MG Capsule PO (19:26)
[2022-01-05] MEDS: Furosemide 20 MG Tablet PO (21:46)
[2022-01-05] MEDS: Atorvastatin Calcium 20 MG Tablet PO (21:46)
[2022-01-06] VITALS (13 sets, daily range): BP systolic 134–155; BP diastolic 50–73; PULSE 54–68; RESP 16–19; TEMP 36.8–37.1; O2SAT 94–98
[2022-01-06] MEDS: Acetaminophen 500 MG Tablet 1000 MG PO ×3 (06:26→20:01)
[2022-01-06] MEDS: Menthol/Lanolin/Calamine/Znox 113 GM Tube 1 APPLIC TOPICAL ×2 (06:26→20:05)
[2022-01-06] MEDS: hydrALAZINE 10 MG Tablet PO ×3 (06:27→20:01)
[2022-01-06] MEDS: Potassium Chloride Oral Tablet 10 MEQ PO (07:59)
[2022-01-06] MEDS: Fenofibrate 145 MG Tablet PO (07:59)
[2022-01-06] MEDS: Allopurinol 300 MG Tablet PO (07:59)
[2022-01-06] MEDS: Gabapentin 100 MG Capsule PO ×2 (07:59→17:11)
[2022-01-06] MEDS: Aspirin 81 MG TAB.CHEW PO (07:59)
[2022-01-06] MEDS: Venlafaxine XR 37.5 MG Capsule PO (08:00)
[2022-01-06] MEDS: Colchicine 0.6 MG TABLET PO (08:00)
[2022-01-06] MEDS: APIXABAN 2.5 MG TABLET PO ×2 (08:01→20:01)
[2022-01-06] MEDS: Pantoprazole Sodium 40 MG Tablet PO (08:01)
[2022-01-06] MEDS: Cholecalciferol (Vit D3) 125 MCG CAPSULE (5,000 UNITS) PO (08:02)
[2022-01-06] MEDS: Cyanocobalamin (B12) 1,000 MCG/ML Vial 1000 MCG IM (08:02)
[2022-01-06] MEDS: Metoprolol(XL)Succ 100 MG Tablet PO (08:30)
[2022-01-06] MEDS: Gabapentin 300 MG Capsule PO (18:56)
--- NOTE | 2022-01-06 19:08 | NURSING ---
per patients spouse, he has chronic issues with loose stool and takes metimucil at home.
[2022-01-06] MEDS: Atorvastatin Calcium 20 MG Tablet PO (20:01)
[2022-01-06] MEDS: Furosemide 20 MG Tablet PO (20:01)
[2022-01-07] VITALS (8 sets, daily range): BP systolic 143–155; BP diastolic 53–54; PULSE 55–68; RESP 16–18; TEMP 36.6–36.7; O2SAT 94–98
[2022-01-07] MEDS: Acetaminophen 500 MG Tablet 1000 MG PO ×3 (06:36→21:16)
[2022-01-07] MEDS: hydrALAZINE 10 MG Tablet PO ×3 (06:36→21:15)
[2022-01-07] MEDS: Menthol/Lanolin/Calamine/Znox 113 GM Tube 1 APPLIC TOPICAL ×2 (06:37→21:16)
[2022-01-07] MEDS: Aspirin 81 MG TAB.CHEW PO (08:19)
[2022-01-07] MEDS: Gabapentin 100 MG Capsule PO ×2 (08:19→17:09)
[2022-01-07] MEDS: Cholecalciferol (Vit D3) 125 MCG CAPSULE (5,000 UNITS) PO (08:19)
[2022-01-07] MEDS: Allopurinol 300 MG Tablet PO (08:19)
[2022-01-07] MEDS: Fenofibrate 145 MG Tablet PO (08:19)
[2022-01-07] MEDS: APIXABAN 2.5 MG TABLET PO ×2 (08:21→21:16)
[2022-01-07] MEDS: Metoprolol(XL)Succ 100 MG Tablet PO (08:21)
[2022-01-07] MEDS: Venlafaxine XR 37.5 MG Capsule PO (08:22)
[2022-01-07] MEDS: Colchicine 0.6 MG TABLET PO (08:23)
[2022-01-07] MEDS: Pantoprazole Sodium 40 MG Tablet PO (08:24)
[2022-01-07] MEDS: Potassium Chloride Oral Tablet 10 MEQ PO (08:24)
[2022-01-07] MEDS: Cyanocobalamin (B12) 1,000 MCG/ML Vial 1000 MCG IM (08:27)
[2022-01-07] MEDS: Gabapentin 300 MG Capsule PO (19:52)
[2022-01-07] MEDS: Atorvastatin Calcium 20 MG Tablet PO (21:16)
[2022-01-07] MEDS: Furosemide 20 MG Tablet PO (21:16)
[2022-01-08] VITALS (7 sets, daily range): BP systolic 143–152; BP diastolic 61–74; PULSE 66–77; RESP 15–18; TEMP 36.4; O2SAT 95–96
--- NOTE | 2022-01-08 02:18 | NURSING ---
02:18- Pt found still awake watching TV and looking at phone. Pt asked for fresh ice water in pitcher.
[2022-01-08] MEDS: Acetaminophen 500 MG Tablet 1000 MG PO ×3 (06:27→21:07)
[2022-01-08] MEDS: hydrALAZINE 10 MG Tablet PO ×3 (06:28→21:06)
[2022-01-08] MEDS: Menthol/Lanolin/Calamine/Znox 113 GM Tube 1 APPLIC TOPICAL ×2 (06:33→21:07)
[2022-01-08] MEDS: Venlafaxine XR 37.5 MG Capsule PO (08:57)
[2022-01-08] MEDS: Gabapentin 100 MG Capsule PO ×2 (08:57→17:18)
[2022-01-08] MEDS: Potassium Chloride Oral Tablet 10 MEQ PO (08:58)
[2022-01-08] MEDS: Allopurinol 300 MG Tablet PO (08:58)
[2022-01-08] MEDS: Cholecalciferol (Vit D3) 125 MCG CAPSULE (5,000 UNITS) PO (08:58)
[2022-01-08] MEDS: Metoprolol(XL)Succ 100 MG Tablet PO (08:58)
[2022-01-08] MEDS: Aspirin 81 MG TAB.CHEW PO (08:58)
[2022-01-08] MEDS: Fenofibrate 145 MG Tablet PO (08:58)
[2022-01-08] MEDS: Pantoprazole Sodium 40 MG Tablet PO (08:58)
[2022-01-08] MEDS: APIXABAN 2.5 MG TABLET PO ×2 (08:59→21:07)
[2022-01-08] MEDS: Colchicine 0.6 MG TABLET PO (08:59)
[2022-01-08] MEDS: Cyanocobalamin (B12) 1,000 MCG/ML Vial 1000 MCG IM (14:55)
[2022-01-08] MEDS: Gabapentin 300 MG Capsule PO (19:43)
[2022-01-08] MEDS: Atorvastatin Calcium 20 MG Tablet PO (21:07)
[2022-01-08] MEDS: Senna/Docusate Sodium 1 Tablet 2 TABLET PO (21:07)
[2022-01-08] MEDS: Furosemide 20 MG Tablet PO (21:07)
[2022-01-09] VITALS (7 sets, daily range): BP systolic 114–153; BP diastolic 60–70; PULSE 57–76; RESP 16–17; TEMP 36.3–36.8; O2SAT 94–98
[2022-01-09] MEDS: Menthol/Lanolin/Calamine/Znox 113 GM Tube 1 APPLIC TOPICAL ×2 (06:12→21:05)
[2022-01-09] MEDS: hydrALAZINE 10 MG Tablet PO ×3 (06:12→21:05)
[2022-01-09] MEDS: Acetaminophen 500 MG Tablet 1000 MG PO ×3 (06:12→21:05)
--- NOTE | 2022-01-09 07:52 | PN_ITS ---
Subjective Subjective Patient seen, examined. He is progressing well with therapy. He is anxious to go home, his is waiting for him. Objective Data Objective Data Vital Signs: Vital Signs Temp Pulse Resp BP Pulse Ox O2 Del Method 98.3 F 57 L 16 114/60 98 Room Air 01/09/22 07:16 01/09/22 07:16 01/09/22 07:16 01/09/22 07:16 01/09/22 07:16 01/09/22 07:16 Oxygen Delivery Method Room Air Weight: 98.2 kg Body Mass Index (BMI) 31.7 Intake & Output: Intake and Output for Last 24 Hours 01/07/22 01/08/22 01/09/22 23:59 23:59 23:59 Intake Total 1460 / 1460 1650 / 1650 800 / 800 Output Total 1700 / 1700 1400 / 1400 750 / 750 Balance -240 / -240 250 / 250 50 / 50 Lab / Micro Data Result Diagrams: 01/02/22 05:24 01/02/22 05:24 Micro: Microbiology 01/02/22 15:00 Urine Catheter - Catheter Urine Culture - Final Enterobacter cloacae complex Pseudomonas aeroginosa Physical Exam Const alert General Appearance: cooperative HEENT normocephalic Eyes PERRL and EOMs intact bilaterally Neck supple, no JVD and no carotid bruits Resp normal respiratory effort, normal air movement and clear to auscultation bilaterally Cardio regular rate and regular rhythm GI normal to inspection, nondistended, normoactive bowel sounds, non-tender and non-distended Extremity normal capillary refill General Extremity: Negative for edema Skin no rashes or lesions noted General Skin Exam: no breakdown Psych affect normal Appearance: appropriate Assessment & Plan Assessment/Plan (1) Debility: (2) History of left hip replacement: (3) B12 deficiency: (4) Congestive heart failure (CHF): (5) Hypertension: (6) Gout: (7) Coronary artery disease: (8) Hyperlipidemia: (9) Neuropathic pain: (10) Gastroesophageal reflux disease: (11) Hypokalemia: (12) Depression: PLAN: Plan 81 year old male with below past medical history hospitalized for left hip replacement, admitted to for greater than 3 hours daily rehabilitation, strengthening, prior to discharge home with . * Debility - PT/OT. * Dysphagia - ST. * Pain - Tylenol 1000mg q8. * Bowel - Senna/colace 2 tablets bid, Dulcolax 10mg pr x 1 prn, MOM 30ml x 1 prn. * DVT prophylaxis - Eliquis 2.5mg bid thru 01/30/2022. * Gout - Allopurinol 300mg daily, colchicine 0.6mg daily. * Coronary artery disease - Metoprolol xl 100mg daily, aspirin 81mg daily, NTG 0.4mg q5m prn. * Hyperlipidemia - Atorvastatin 20mg qhs, fenofibrate 145mg daily. * B12 deficiency - B12 1000mcg im q7days thru 02/06/2022. * Chronic diastolic congestive herat failure - Metoprolol xl 100mg daily, Hydralazine 10mg tid, Furosemide 20mg qhs. * Neuropathic pain - gabaeptnin 100mg bid, 300mg. * Skin irritation - Calmoseptine topical bid. * GERD - Pantoprazole 40mg daily. * Hypokalemia - KCL 10meq daily. * Depression - Venlafaxine 37.5mg daily. * Vitamin D deficiency - D3 125mcg daily.
[2022-01-09] MEDS: Venlafaxine XR 37.5 MG Capsule PO (08:20)
[2022-01-09] MEDS: Colchicine 0.6 MG TABLET PO (08:20)
[2022-01-09] MEDS: Gabapentin 100 MG Capsule PO ×2 (08:20→16:43)
[2022-01-09] MEDS: Potassium Chloride Oral Tablet 10 MEQ PO (08:20)
[2022-01-09] MEDS: Fenofibrate 145 MG Tablet PO (08:20)
[2022-01-09] MEDS: Allopurinol 300 MG Tablet PO (08:20)
[2022-01-09] MEDS: Aspirin 81 MG TAB.CHEW PO (08:20)
[2022-01-09] MEDS: Pantoprazole Sodium 40 MG Tablet PO (08:21)
[2022-01-09] MEDS: Cholecalciferol (Vit D3) 125 MCG CAPSULE (5,000 UNITS) PO (08:21)
[2022-01-09] MEDS: APIXABAN 2.5 MG TABLET PO ×2 (08:21→21:05)
[2022-01-09] MEDS: Metoprolol(XL)Succ 100 MG Tablet PO (08:25)
--- NOTE | 2022-01-09 09:50 | CASEMGMT ---
Social Work Pt/ requesting to schedule DC. SW spoke with . stated pt expressed wanting to continue strengthening leg but also not wanting to stay until 01/15. SW educated to no charge and no therapy on day of DC. agreeable to DC 01/12 in lieu of Team meeting. requesting outpatient therapy at [facility] in [place] for PT/OT. No DME needs. to transport at 1100. SW spoke with pt about DC plans. Pt reluctant but agreeable to DC 01/12 and outpatient therapy. SW made referral via fax to [facility] for PT/OT. Plan: DC home with 01/12, [facility] PT/OT RAHAT MeléndezW
[2022-01-09] MEDS: Gabapentin 300 MG Capsule PO (18:52)
[2022-01-09] MEDS: Atorvastatin Calcium 20 MG Tablet PO (21:05)
[2022-01-09] MEDS: Furosemide 20 MG Tablet PO (21:06)
[2022-01-10] VITALS (7 sets, daily range): BP systolic 139–166; BP diastolic 62–64; PULSE 53–63; RESP 16–18; TEMP 36.6–37.1; O2SAT 93–95
[2022-01-10] MEDS: Acetaminophen 500 MG Tablet 1000 MG PO ×3 (05:51→21:02)
[2022-01-10] MEDS: hydrALAZINE 10 MG Tablet PO ×3 (05:52→21:02)
[2022-01-10] MEDS: Menthol/Lanolin/Calamine/Znox 113 GM Tube 1 APPLIC TOPICAL ×2 (05:54→20:11)
--- NOTE | 2022-01-10 06:07 | NURSING ---
Pt refuses a.m. ADLs but allows staff to apply TEDs. Pt hadn't slept well for a couple nights and finally got a restful night of sleep but stated he just wanted to go back to sleep.
--- NOTE | 2022-01-10 08:22 | PN_ITS ---
Subjective Subjective Resident seen, examined. He has no new complaints. He is looking forward to going home in 2 days, he wishes he could go home earlier. Objective Data Objective Data Vital Signs: Vital Signs Temp Pulse Resp BP Pulse Ox O2 Del Method 97.8 F 53 L 18 155/62 H 93 Room Air 01/10/22 07:34 01/10/22 07:34 01/10/22 07:34 01/10/22 07:34 01/10/22 07:34 01/10/22 07:34 Oxygen Delivery Method Room Air Weight: 98.2 kg Body Mass Index (BMI) 31.7 Intake & Output: Intake and Output for Last 24 Hours 01/08/22 01/09/22 01/10/22 23:59 23:59 23:59 Intake Total 1650 / 1650 2490 / 2490 500 / 500 Output Total 1400 / 1400 1950 / 1950 600 / 600 Balance 250 / 250 540 / 540 -100 / -100 Lab / Micro Data Result Diagrams: 01/02/22 05:24 01/02/22 05:24 Micro: Microbiology 01/02/22 15:00 Urine Catheter - Catheter Urine Culture - Final Enterobacter cloacae complex Pseudomonas aeroginosa Physical Exam Const alert General Appearance: cooperative HEENT normocephalic Eyes PERRL and EOMs intact bilaterally Neck supple, no JVD and no carotid bruits Resp normal respiratory effort, normal air movement and clear to auscultation bilaterally Cardio regular rate and regular rhythm GI normal to inspection, nondistended, normoactive bowel sounds, non-tender and non-distended GI Narrative: Urostomy connected to landis catheter. Extremity normal capillary refill General Extremity: Negative for edema Skin no rashes or lesions noted General Skin Exam: no breakdown Psych affect normal Appearance: appropriate Assessment & Plan Assessment/Plan (1) Debility: (2) History of left hip replacement: (3) B12 deficiency: (4) Congestive heart failure (CHF): (5) Hypertension: (6) Gout: (7) Coronary artery disease: (8) Hyperlipidemia: (9) Neuropathic pain: (10) Gastroesophageal reflux disease: (11) Hypokalemia: (12) Depression: PLAN: Plan 81 year old male with below past medical history hospitalized for left hip replacement, admitted to for greater than 3 hours daily rehabilitation, strengthening, prior to discharge home with . Planning discharge 01/12/2022. * Debility - PT/OT. * Dysphagia - ST. * Pain - Tylenol 1000mg q8. * Bowel - Senna/colace 2 tablets bid, Dulcolax 10mg pr x 1 prn, MOM 30ml x 1 prn. * DVT prophylaxis - Eliquis 2.5mg bid thru 01/30/2022. * Gout - Allopurinol 300mg daily, colchicine 0.6mg daily. * Coronary artery disease - Metoprolol xl 100mg daily, aspirin 81mg daily, NTG 0.4mg q5m prn. * Hyperlipidemia - Atorvastatin 20mg qhs, fenofibrate 145mg daily. * B12 deficiency - B12 1000mcg im q7days thru 02/06/2022. * Chronic diastolic congestive herat failure - Metoprolol xl 100mg daily, Hydralazine 10mg tid, Furosemide 20mg qhs. * Neuropathic pain - gabaeptnin 100mg bid, 300mg. * Skin irritation - Calmoseptine topical bid. * GERD - Pantoprazole 40mg daily. * Hypokalemia - KCL 10meq daily. * Depression - Venlafaxine 37.5mg daily. * Vitamin D deficiency - D3 125mcg daily. Capacity Capacity Assessment Tool Can the patient make a choice & communicate that choice?: Yes Can the patient understand benefits, risks and alternatives?: Yes Can the patient make a logical, rational choice?: Yes Is the choice the patient makes consistent w/ their values?: Yes Is there an impending, emergent risk to the patient?: No Does the patient have an Advance Directive?: No Is there a Surrogate Available?: Yes i.e. HCPOA: Yes i.e. close relative (spouse, child, parent, sibling)?: Yes
[2022-01-10] MEDS: Allopurinol 300 MG Tablet PO (08:34)
[2022-01-10] MEDS: APIXABAN 2.5 MG TABLET PO ×2 (08:34→21:02)
[2022-01-10] MEDS: Venlafaxine XR 37.5 MG Capsule PO (08:34)
[2022-01-10] MEDS: Potassium Chloride Oral Tablet 10 MEQ PO (08:34)
[2022-01-10] MEDS: Aspirin 81 MG TAB.CHEW PO (08:34)
[2022-01-10] MEDS: Metoprolol(XL)Succ 100 MG Tablet PO (08:34)
[2022-01-10] MEDS: Fenofibrate 145 MG Tablet PO (08:34)
[2022-01-10] MEDS: Colchicine 0.6 MG TABLET PO (08:34)
[2022-01-10] MEDS: Pantoprazole Sodium 40 MG Tablet PO (08:34)
[2022-01-10] MEDS: Cholecalciferol (Vit D3) 125 MCG CAPSULE (5,000 UNITS) PO (08:34)
[2022-01-10] MEDS: Gabapentin 100 MG Capsule PO ×2 (08:36→17:25)
[2022-01-10] MEDS: Gabapentin 300 MG Capsule PO (19:20)
[2022-01-10] MEDS: Atorvastatin Calcium 20 MG Tablet PO (21:02)
[2022-01-10] MEDS: Furosemide 20 MG Tablet PO (21:02)
[2022-01-11] VITALS (8 sets, daily range): BP systolic 128–146; BP diastolic 64–67; PULSE 54–72; RESP 16–18; TEMP 35.9–36.9; O2SAT 95–97
[2022-01-11] MEDS: Acetaminophen 500 MG Tablet 1000 MG PO ×3 (05:59→19:46)
[2022-01-11] MEDS: hydrALAZINE 10 MG Tablet PO ×3 (05:59→19:46)
[2022-01-11] MEDS: Menthol/Lanolin/Calamine/Znox 113 GM Tube 1 APPLIC TOPICAL ×2 (06:02→19:44)
[2022-01-11] MEDS: Colchicine 0.6 MG TABLET PO (08:11)
[2022-01-11] MEDS: Allopurinol 300 MG Tablet PO (08:11)
[2022-01-11] MEDS: Aspirin 81 MG TAB.CHEW PO (08:12)
[2022-01-11] MEDS: Pantoprazole Sodium 40 MG Tablet PO (08:12)
[2022-01-11] MEDS: Potassium Chloride Oral Tablet 10 MEQ PO (08:12)
[2022-01-11] MEDS: Fenofibrate 145 MG Tablet PO (08:12)
[2022-01-11] MEDS: APIXABAN 2.5 MG TABLET PO ×2 (08:12→19:46)
[2022-01-11] MEDS: Venlafaxine XR 37.5 MG Capsule PO (08:12)
[2022-01-11] MEDS: Cholecalciferol (Vit D3) 125 MCG CAPSULE (5,000 UNITS) PO (08:12)
[2022-01-11] MEDS: Metoprolol(XL)Succ 100 MG Tablet PO (08:12)
[2022-01-11] MEDS: Gabapentin 100 MG Capsule PO ×2 (08:15→16:36)
--- NOTE | 2022-01-11 08:39 | DS.PCM_ITS ---
Providers Date of Admission: 01/01/22 Consultations 01/01/22 Consult: Onc/Wound/cook fishing vessel Routine Comment: Reason for Consult:: incisional wound vac left hip 01/01/22 16:14 Consult: Onc/Wound/cook fishing vessel Routine Comment: Reason for Consult:: urostomy Reason For Visit: LEFT HIP REPLACEMENT Diagnosis Discharge Diagnosis (1) Debility: Status: Acute Code(s): R53.81 - Other malaise (2) History of left hip replacement: Status: Acute Code(s): Z96.642 - Presence of left artificial hip joint (3) B12 deficiency: Status: Acute Code(s): E53.8 - Deficiency of other specified B group vitamins (4) Congestive heart failure (CHF): Status: Acute Code(s): I50.9 - Heart failure, unspecified (5) Hypertension: Status: Chronic Code(s): I10 - Essential (primary) hypertension (6) Gout: Status: Acute Code(s): M10.9 - Gout, unspecified (7) Coronary artery disease: Status: Acute Code(s): I25.10 - Atherosclerotic heart disease of [place] coronary artery without angina pectoris (8) Hyperlipidemia: Status: Acute Code(s): E78.5 - Hyperlipidemia, unspecified (9) Neuropathic pain: Status: Acute Code(s): M79.2 - Neuralgia and neuritis, unspecified (10) Gastroesophageal reflux disease: Status: Acute Code(s): K21.9 - Gastro-esophageal reflux disease without esophagitis (11) Hypokalemia: Status: Acute Code(s): E87.6 - Hypokalemia (12) Depression: Status: Acute Code(s): F32.A - Depression, unspecified Plan 81 year old male with below past medical history hospitalized for left hip replacement, admitted to for greater than 3 hours daily rehabilitation, strengthening, prior to discharge home with . Planning discharge 01/12/2022. * Debility - PT/OT. * Dysphagia - ST. * Pain - Tylenol 1000mg q8. * Bowel - Senna/colace 2 tablets bid, Dulcolax 10mg pr x 1 prn, MOM 30ml x 1 prn. * DVT prophylaxis - Eliquis 2.5mg bid thru 01/30/2022. * Gout - Allopurinol 300mg daily, colchicine 0.6mg daily. * Coronary artery disease - Metoprolol xl 100mg daily, aspirin 81mg daily, NTG 0.4mg q5m prn. * Hyperlipidemia - Atorvastatin 20mg qhs, fenofibrate 145mg daily. * B12 deficiency - B12 1000mcg im q7days thru 02/06/2022. * Chronic diastolic congestive herat failure - Metoprolol xl 100mg daily, Hydralazine 10mg tid, Furosemide 20mg qhs. * Neuropathic pain - gabaeptnin 100mg bid, 300mg. * Skin irritation - Calmoseptine topical bid. * GERD - Pantoprazole 40mg daily. * Hypokalemia - KCL 10meq daily. * Depression - Venlafaxine 37.5mg daily. * Vitamin D deficiency - D3 125mcg daily. Medications at Discharge Home Medications acetaminophen 500 mg tablet (Acetaminophen Extra Strength) 1,000 mg PO Q8H pain 01/01/22 allopurinol 300 mg tablet 300 mg PO DAILY gout 01/01/22 aspirin 325 mg tablet 325 mg PO BID dvt 01/01/22 colchicine 0.6 mg tablet 0.6 mg PO DAILY gout 01/01/22 fenofibrate 160 mg tablet 160 mg PO DAILY cholesterol 01/01/22 furosemide 20 mg tablet (Lasix) 20 mg PO QHS diuretic 01/01/22 gabapentin 600 mg tablet 600 mg PO TID pain 01/01/22 hydralazine 10 mg tablet 10 mg PO TID bp 01/01/22 metoprolol succinate 100 mg tablet,extended release 24 hr 100 mg PO DAILY bp 01/01/22 nitroglycerin 0.4 mg sublingual tablet 0.4 mg sublingual Q5M PRN Chest Pain 01/01/22 pantoprazole 40 mg tablet,delayed release (Protonix) 40 mg PO DAILY acid reflux 01/01/22 potassium chloride 10 mEq tablet,extended release 10 meq PO DAILY supp 01/01/22 simvastatin 40 mg tablet (Zocor) 40 mg PO QHS cholesterol 01/01/22 apixaban 2.5 mg tablet (Eliquis) 2.5 mg PO BID 18 days #36 tabs 01/11/22 aspirin 81 mg chewable tablet 81 mg PO BREAKFAST #0 tabs 01/11/22 cholecalciferol (vitamin D3) 125 mcg (5,000 unit) capsule 125 mcg PO DAILY 30 days #30 caps 01/11/22 gabapentin 100 mg capsule 100 mg PO BIDCM 30 days #60 caps 01/11/22 gabapentin 300 mg capsule 300 mg PO 1900 30 days #30 caps 01/11/22 venlafaxine 37.5 mg capsule,extended release 24 hr 37.5 mg PO DAILY 30 days #30 caps 01/11/22 Hospital Course Operations total hip replacement (Left, 12/28/2021.) Procedures None Summary of Care Provided Minutes Spent on Discharge: 35 Hospital Course: 81 year old male with below past medical history hospitalized for left hip replacement, admitted to for greater than 3 hours daily rehabilitation, strengthening, prior to discharge home with . Planning discharge 01/12/2022. Discharge home with 01/12/2022, Ashia HUSTON PT/OT. Physical Exam Const alert General Appearance: cooperative HEENT normocephalic Eyes PERRL and EOMs intact bilaterally Neck supple, no JVD and no carotid bruits Resp normal respiratory effort, normal air movement and clear to auscultation bilaterally Cardio regular rate and regular rhythm GI normal to inspection, nondistended, normoactive bowel sounds, non-tender and non-distended Extremity normal capillary refill General Extremity: Negative for edema Skin no rashes or lesions noted General Skin Exam: no breakdown Psych affect normal Appearance: appropriate Weight / BMI Weight Weight: 98.2 kg Body Mass Index (BMI) 31.7 ABG / Lab / Microbiology Data Result Diagrams: 01/02/22 05:24 01/02/22 05:24 Microbiology: Microbiology 01/02/22 15:00 Urine Catheter - Catheter Urine Culture - Final Enterobacter cloacae complex Pseudomonas aeroginosa Indicators for Scoring Admitted with or Primary Diagnosis of CVA/Stroke: No Hx of CVA/Stroke: No D/C Instructions Discharge Diet: No restrictions Discharge Activity: Return to Normal Activity, May Shower and Use Walker Weight Bearing Status: Weight bearing as tolerated Call your doctor if you observe: Fever of 101 or Higher, Inability to urinate, Inability to have a bowel movement, Shortness of breath, Dizziness, Fainting spells, Swelling in the ankles, Chest pain and Uncontrolled pain Additional Instructions: Discharge home with 01/12/2022, sAhia HUSTON PT/OT. Meaningful Use Info Meaningful Use Diagnoses (Choose all that apply): None applicable Discharge Plan Admission Admit Date/Time: 01/01/22 12:45 Primary Reason for Your Visit: Debility. Attending Provider: April Maloney Instructions Additional Instructions / Restrictions: Discharge home with 01/12/2022, Ashia LOZAJOYCE PT/OT. Discharge Orders/Prescriptions Prescriptions: New Eliquis 2.5 mg Tablet 2.5 mg PO BID 18 Days Qty: 36 0RF venlafaxine 37.5 mg Capsule,Extended Release 24hr 37.5 mg PO DAILY 30 Days Qty: 30 0RF gabapentin 300 mg Capsule 300 mg PO 1900 30 Days Qty: 30 0RF aspirin 81 mg Tablet,Chewable 81 mg PO BREAKFAST Qty: 0 0RF gabapentin 100 mg Capsule 100 mg PO BIDCM 30 Days Qty: 60 0RF cholecalciferol (vitamin D3) 125 mcg (5,000 unit) Capsule 125 mcg PO DAILY 30 Days Qty: 30 0RF Continued hydralazine 10 mg Tablet 10 mg PO TID acetaminophen [Acetaminophen Extra Strength] 500 mg Tablet 1,000 mg PO Q8H allopurinol 300 mg Tablet 300 mg PO DAILY furosemide [Lasix] 20 mg Tablet 20 mg PO QHS colchicine 0.6 mg Tablet 0.6 mg PO DAILY fenofibrate 160 mg Tablet 160 mg PO DAILY metoprolol succinate 100 mg Tablet Extended Release 24 Hr 100 mg PO DAILY potassium chloride 10 mEq Tablet Extended Release 10 meq PO DAILY simvastatin [Zocor] 40 mg Tablet 40 mg PO QHS pantoprazole [Protonix] 40 mg Tablet,Delayed Release (Dr/Ec) 40 mg PO DAILY nitroglycerin 0.4 mg Tablet, Sublingual 0.4 mg SUBLINGUAL Q5M PRN (Reason: Chest Pain) Rx Instructions: do not exceed 3 doses per episode No Action gabapentin 600 mg Tablet 600 mg PO TID aspirin 325 mg Tablet 325 mg PO BID Referrals / Follow Up: [place] [facility] [Other] - 01/27/22 8:30 am () X-Ray [Other] - 01/27/22 8:20 am (register for your x-ray at orthopedic office) Dr Sunny Carbone [Other] - 05/05/22 8:00 am X-Ray [Other] - 05/05/22 7:50 am Disposition Disposition (needs filled in before D/C Order can be placed): Home, Self Care
[2022-01-11] MEDS: Gabapentin 300 MG Capsule PO (19:43)
[2022-01-11] MEDS: Atorvastatin Calcium 20 MG Tablet PO (19:46)
[2022-01-11] MEDS: Furosemide 20 MG Tablet PO (19:46)
[2022-01-12] MEDS: Acetaminophen 500 MG Tablet 1000 MG PO (05:32)
[2022-01-12] MEDS: Menthol/Lanolin/Calamine/Znox 113 GM Tube 1 APPLIC TOPICAL (05:32)
[2022-01-12 05:34] VITALS: BP 151/65; PULSE 56
[2022-01-12] MEDS: hydrALAZINE 10 MG Tablet PO (05:34)
[2022-01-12 07:30] VITALS: BP 151/65; PULSE 57; RESP 18; TEMP 36.8; O2SAT 96
[2022-01-12] MEDS: Gabapentin 100 MG Capsule PO (07:57)
[2022-01-12] MEDS: APIXABAN 2.5 MG TABLET PO (07:58)
[2022-01-12] MEDS: Potassium Chloride Oral Tablet 10 MEQ PO (07:58)
[2022-01-12] MEDS: Venlafaxine XR 37.5 MG Capsule PO (07:58)
[2022-01-12] MEDS: Pantoprazole Sodium 40 MG Tablet PO (07:58)
[2022-01-12 07:59] VITALS: PULSE 66
[2022-01-12] MEDS: Colchicine 0.6 MG TABLET PO (07:59)
[2022-01-12] MEDS: Aspirin 81 MG TAB.CHEW PO (07:59)
[2022-01-12] MEDS: Fenofibrate 145 MG Tablet PO (07:59)
[2022-01-12] MEDS: Cholecalciferol (Vit D3) 125 MCG CAPSULE (5,000 UNITS) PO (07:59)
[2022-01-12] MEDS: Metoprolol(XL)Succ 100 MG Tablet PO (07:59)
[2022-01-12] MEDS: Allopurinol 300 MG Tablet PO (07:59)
== END 2022-01-12 11:08 | disposition home or self-care (01) | DRG 560 ==
PROVIDERS: Admitting Provider Internal Medicine; Visit Provider Internal Medicine
DX: Z47.1 Aftercare following joint replacement surgery (principal); I50.32 Chronic diastolic (congestive) heart failure; G95.9 Disease of spinal cord, unspecified; I11.0 Hypertensive heart disease with heart failure; I48.0 Paroxysmal atrial fibrillation; E55.9 Vitamin D deficiency, unspecified; E78.5 Hyperlipidemia, unspecified; K21.9 Gastro-esophageal reflux disease without esophagitis; G62.9 Polyneuropathy, unspecified; M10.9 Gout, unspecified; I25.10 Atherosclerotic heart disease of native coronary artery without angina pectoris; G47.33 Obstructive sleep apnea (adult) (pediatric); E87.6 Hypokalemia; I87.2 Venous insufficiency (chronic) (peripheral); F32.A Depression, unspecified; Z87.891 Personal history of nicotine dependence; Z96.642 Presence of left artificial hip joint; Z79.899 Other long term (current) drug therapy; Z79.82 Long term (current) use of aspirin; Z85.46 Personal history of malignant neoplasm of prostate
CPT/HCPCS: 36415; 80053; 81001; 82306; 82607; 82746; 83036; 83735; 84100; 84403; 84443; 84550; 85027; 86340; 87077; 87086; 87088; 87186; 92507; 92523; 92610; 96125; 97110; 97116; 97129; 97130; 97162; 97166; 97530; 97535; 97802; J3420